=== PATIENT | female | born 1970 | race Caucasian/White ===

== ENCOUNTER 2017-01-10 19:20 | Emergency (ER) | payer SELFPAY ==
[~2017-01-10] VITALS: Ht 149.9 cm; Wt 80.0 kg
[~2017-01-10 19:20] MED LIST: CEPHALEXIN500 MG PO; DUONEB IN; FLEXERIL PO; HYDROCHLOROT12.5 MG PO; IPRATROPIU0.5 MG/3 M IN; LISINOPRIL10 MG PO; MEDDOSEPAK PO; NAPROSYN500 MG PO; QVAR80 MCG IN; ROBITUSSIN AC10 ML PO
[2017-01-10] MEDS ORDERED: AMOXICILLIN500 MG PO (20:24)
[2017-01-10] MEDS ORDERED: PERCOCET 5/325M1 TAB PO (20:24)
[2017-01-10 20:36] VITALS: BP 148/89
== END 2017-01-10 20:36 | disposition home or self-care (01) | DRG 159 ==
LOC: ED 19:20
DX: K02.9 Dental caries, unspecified (principal); I10 Essential (primary) hypertension; J44.9 Chronic obstructive pulmonary disease, unspecified; F17.210 Nicotine dependence, cigarettes, uncomplicated

== ENCOUNTER 2017-10-18 19:44 | Emergency (ER) | payer SELFPAY ==
[~2017-10-18] VITALS: Ht 149.9 cm; Wt 84.6 kg
[~2017-10-18 19:44] MED LIST changes: +AMOXICILLIN500 MG PO; +PERCOCET 5/325M1 TAB PO
[2017-10-18] MEDS ORDERED: ALBUTEROL2 MG/5 ML PO (19:52)
[2017-10-18 21:27] LABS: INFLUENZA A NONE DETECTED (NONE DETECT); INFLUENZA B NONE DETECTED (NONE DETECT)
[2017-10-18 22:00] VITALS: BP 157/95
== END 2017-10-18 22:05 | disposition home or self-care (01) | DRG 203 ==
LOC: ED 19:44
PROVIDERS: Emergency Medicine
DX: J20.9 Acute bronchitis, unspecified (principal); F17.210 Nicotine dependence, cigarettes, uncomplicated; R06.02 Shortness of breath; R05 Cough; R09.89 Other specified symptoms and signs involving the circulatory and respiratory systems

== ENCOUNTER 2018-07-08 17:46 | Emergency (ER) | payer SELFPAY ==
[~2018-07-08] VITALS: Ht 149.9 cm; Wt 85.0 kg
[~2018-07-08 17:46] MED LIST changes: +ALBUTEROL2 MG/5 ML PO
[2018-07-08 18:26] LABS: HEMATOCRIT 43.2 % (37.0-47.0); HEMOGLOBIN 14.3 g/dl (12.0-16.0); IMMATURE GRANULOCYTES 0.2 % (0.0-5.0); MEAN CELL VOLUME 88.5 fL CALC (80.0-100.0); MEAN CORPUSCULAR HGB 29.3 pG CALC (26.0-32.0); MEAN CORPUSCULAR HGB CONC 33.1 g/L CALC (32.0-36.0); NEUT# 4.57 thou/uL (2.00-7.15); RED BLOOD COUNT 4.88 mill/uL (4.20-5.60); RED CELL DISTRI WIDTH 13.8 % (11.5-15.5)
[2018-07-08 18:36] LABS: ALBUMIN 4.2 g/dL (3.2-5.0); ALKALINE PHOSPHATASE 129 u/l (38-126); ANION GAP 14 (6-22 (CALC)); BILIRUBIN, TOTAL 0.3 mg/dL (0.0-1.4); BUN 20 mg/dL (7-17); BUN/CREATININE RATIO 23 (12-20 (CALC)); CARBON DIOXIDE 26 mmol/l (22-30); CHLORIDE 108 mmol/l (95-108); CREATININE 0.9 mg/dL (0.5-1.0); GFR > 60 ML/MIN (>=60 (CALC)); GFR FOR AFR.AMER. > 60 ML/MIN (>=60 (CALC)); POTASSIUM 4.1 mmol/l (3.5-5.1); SGOT/AST 25 u/l (14-36); SGPT/ALT 39 u/l (9-52); SODIUM 143 mmol/l (137-146); TOTAL PROTEIN 7.8 g/dL (6.3-8.2)
[2018-07-08 18:37] LABS: ACT PARTIAL THROMBO TIME 27.7 SECONDS (20.0-32.5); D-DIMER 0.71 mg/L (0.19-0.60); INTERNATIONAL NORMALIZED RATIO 0.9 RATIO (0.7-1.3); PROTHROMBIN TIME 10.5 SECONDS (9.0-12.5)
[2018-07-08 19:29] VITALS: BP 139/70
== END 2018-07-08 19:29 | disposition left against medical advice (07) | DRG 204 ==
LOC: ED 17:46
PROVIDERS: Emergency Medicine
DX: R04.2 Hemoptysis (principal); J44.9 Chronic obstructive pulmonary disease, unspecified; F17.210 Nicotine dependence, cigarettes, uncomplicated; Z91.19 Patient's noncompliance with other medical treatment and regimen

== ENCOUNTER 2019-12-30 | Emergency (ER) | payer SELFPAY ==
[2019-12-30 13:06] LABS: HEMOGLOBIN 14.8 g/dl (12.0-16.0); IMMATURE GRANULOCYTES 0.4 % (0.0-5.0); MEAN CELL VOLUME 88.8 fL CALC (80.0-100.0); MEAN CORPUSCULAR HGB CONC 31.5 g/L CALC (32.0-36.0); NEUT# 6.9 thou/uL (2.00-7.15); RED BLOOD COUNT 5.29 mill/uL (4.20-5.60); RED CELL DISTRI WIDTH 14.4 % (11.5-15.5)
[2019-12-30 13:25] LABS: ALBUMIN 3.9 g/dL (3.2-5.0); ALKALINE PHOSPHATASE 118 u/l (38-126); ANION GAP 12 (6-22 (CALC)); BUN 19 mg/dL (7-17); BUN/CREATININE RATIO 25 (12-20 (CALC)); CARBON DIOXIDE 27 mmol/l (22-30); CHLORIDE 104 mmol/l (95-108); CREATININE 0.8 mg/dL (0.5-1.0); GFR > 60 ML/MIN (>=60 (CALC)); GFR FOR AFR.AMER. > 60 ML/MIN (>=60 (CALC)); LIPASE 56 u/l (23-300); POTASSIUM 4.9 mmol/l (3.5-5.1); SGOT/AST 25 u/l (14-36); SODIUM 138 mmol/l (137-146); TOTAL PROTEIN 7.1 g/dL (6.3-8.2)
[2019-12-30 13:26] LABS: BILIRUBIN, TOTAL 0.5 mg/dL (0.0-1.4)
[2019-12-30 14:34] LABS: URINE BILIRUBIN - DIPSTICK NEGATIVE (NEGATIVE); URINE BLOOD DIPSTICK NEGATIVE (NEGATIVE); URINE COLOR YELLOW; URINE GLUCOSE - DIPSTICK NEGATIVE (NEGATIVE); URINE KETONE NEGATIVE (NEGATIVE); URINE LEUK ESTERASE NEGATIVE (NEGATIVE); URINE NITRITE - DIPSTICK NEGATIVE (Negative); URINE PROTEIN - DIPSTICK NEGATIVE (NEG-TRACE); URINE SPECIFIC GRAVITY >=1.030; URINE UROBILINOGEN - DIPSTICK 0.2 E.U./dL (0.2)
== END 2019-12-30 15:35 | disposition home or self-care (01) | DRG 392 ==
PROVIDERS: Family Medicine
DX: R10.9 Unspecified abdominal pain (principal); J44.9 Chronic obstructive pulmonary disease, unspecified; F17.200 Nicotine dependence, unspecified, uncomplicated

== ENCOUNTER 2020-11-29 21:47 | Inpatient (IN) | payer MEDICARE, MEDICAID ==
[~2020-11-29] VITALS: Ht 149.9 cm; Wt 99.5 kg
--- NOTE | 2020-11-29 21:55 | NUR ---
PATIENT TO ROOM 10 VIA WHEELCHAIR. TRIAGE COMPLETED AT BEDSIDE. PATIENT PLACED ON O2. MD AT BEDSIDE FOR EVAL.
[2020-11-29 22:16] LABS: HEMATOCRIT 52.6 % (37.0-47.0); HEMOGLOBIN 16.2 g/dl (12.0-16.0); IMMATURE GRANULOCYTES 0.3 % (0.0-5.0); MEAN CELL VOLUME 92.1 fL CALC (80.0-100.0); MEAN CORPUSCULAR HGB 28.4 pG CALC (26.0-32.0); MEAN CORPUSCULAR HGB CONC 30.8 g/dL CAL (32.0-36.0); NEUT# 8.16 thou/uL (2.00-7.15); RED BLOOD COUNT 5.71 mill/uL (4.20-5.60); RED CELL DISTRI WIDTH 14.8 % (11.5-15.5)
--- NOTE | 2020-11-29 22:18 | NUR ---
PT WAS PLACED ON NRB AT 15 LPM NC. ABG DONE ON NRB. IV STARTED, LABS, CULTURES OBTAINED. COVID SWAB OBTAINED AND SENT TO LAB. EKG DONE. XRAY IN PROGRESS NOW. BREATHING EASIER. SATS UP TO 94 ON NRB. S.O. AT BEDSIDE.
[2020-11-29 22:36] LABS: ALBUMIN 4.3 g/dL (3.2-5.0); ALKALINE PHOSPHATASE 148 u/l (38-126); ANION GAP 10 (6-22 (CALC)); BILIRUBIN, TOTAL 0.4 mg/dL (0.0-1.4); BUN 15 mg/dL (7-17); BUN/CREATININE RATIO 18 (12-20 (CALC)); CARBON DIOXIDE 30 mmol/l (22-30); CHLORIDE 104 mmol/l (95-108); CREATININE 0.9 mg/dL (0.5-1.0); GFR > 60 ML/MIN (>=60 (CALC)); GFR FOR AFR.AMER. > 60 ML/MIN (>=60 (CALC)); LIPASE 58 u/l (23-300); POTASSIUM 4.2 mmol/l (3.5-5.1); SGOT/AST 30 u/l (14-36); SODIUM 140 mmol/l (137-146); TOTAL PROTEIN 7.7 g/dL (6.3-8.2)
[2020-11-29 22:38] LABS: PROTHROMBIN TIME 10.4 SECONDS (9.0-12.5)
--- NOTE | 2020-11-29 22:59 | NUR ---
BREATHING TREATMENT IN PROGRESS...SECOND TREATMENT STARTED.
--- NOTE | 2020-11-29 23:35 | NUR ---
BREATHING EASIER. VSS. FEELS MUCH BETTER.
--- NOTE | 2020-11-29 23:42 | NUR ---
REPORT TO MARI/RN/ICU
[2020-11-30] VITALS (19 sets, daily range): BP systolic 114–155; BP diastolic 58–79
--- NOTE | 2020-11-30 00:09 | NUR ---
TO ICU VIA STRETCHER WITH O2 @ 6 LPM HIGH FLOW. PORTABLE MONITOR. PT BELONGINGS IN BAG. PT FEELS MUCH BETTER AND LESS WINDED. UPON ARRIVAL TO UNIT, PT AMBULATORY FROM STRETCHER TO BED. TOLERATED WELL.
--- NOTE | 2020-11-30 00:15 | NUR ---
RECEIVED FROM ER VIA STRETCHER INTO ICU 2. PATIENT AMBULATED WITH STABLE STANCE AND STEADY GAIT TO BED. PLACED ON HEEL COVERER SHOWING SR. RESP DYSPNEIC WITH EXERTION. O2 ON AT 6 L HFNC. BREATH SOUNDS DIMINISHED WITH FAINT WHEEZES THROUGHOUT LUNG HELLER. TRACE EDEMA OF BLE. BLE FAMILIA IN COLOR WITH FAINT MOTTLING. PATIENT STATES HER LEGS HAVE HAD THESE DISCOLORATIONS FOR PAST YEAR. PERIPHERAL PULSES WEAKLY PALPABLE. SALINE LOCK IN LAC, SITE BENIGN. DISCUSSED PLAN OF CARE. DENIES NEEDS AT THIS TIME. CALL MORAN IN REACH.
--- NOTE | 2020-11-30 02:00 | NUR ---
SLEEPING SOUNDLY. RESP NON-LABORED AT REST.
[2020-11-30 03:27] LABS: HEMATOCRIT 50.2 % (37.0-47.0); HEMOGLOBIN 15.5 g/dl (12.0-16.0); IMMATURE GRANULOCYTES 0.5 % (0.0-5.0); MEAN CELL VOLUME 92.6 fL CALC (80.0-100.0); MEAN CORPUSCULAR HGB 28.6 pG CALC (26.0-32.0); MEAN CORPUSCULAR HGB CONC 30.9 g/dL CAL (32.0-36.0); NEUT# 10.85 thou/uL (2.00-7.15); RED BLOOD COUNT 5.42 mill/uL (4.20-5.60); RED CELL DISTRI WIDTH 14.7 % (11.5-15.5)
[2020-11-30 03:42] LABS: ALKALINE PHOSPHATASE 124 u/l (38-126); ANION GAP 8 (6-22 (CALC)); BILIRUBIN, TOTAL 0.4 mg/dL (0.0-1.4); BUN 15 mg/dL (7-17); BUN/CREATININE RATIO 21 (12-20 (CALC)); CARBON DIOXIDE 31 mmol/l (22-30); CHLORIDE 104 mmol/l (95-108); CREATININE 0.7 mg/dL (0.5-1.0); GFR > 60 ML/MIN (>=60 (CALC)); GFR FOR AFR.AMER. > 60 ML/MIN (>=60 (CALC)); POTASSIUM 4.8 mmol/l (3.5-5.1); SGOT/AST 23 u/l (14-36); SODIUM 138 mmol/l (137-146); TOTAL PROTEIN 6.9 g/dL (6.3-8.2)
--- NOTE | 2020-11-30 04:00 | NUR ---
VSS. RESP NON-LABORED AT REST. SR ON MONITOR.
--- NOTE | 2020-11-30 05:40 | NUR ---
PATIENT SPOUSE CALLED FOR CONDITION UPDATE.
--- NOTE | 2020-11-30 06:05 | NUR ---
PATIENT HAS SLEPT SOUDNLY, AWAKENS TO NAME. VSS. SR ON MONITOR.
--- NOTE | 2020-11-30 09:00 | NUR ---
PT SEEN RESTING IN BED WITH EYES CLOSED. SHE DOES HAVE SLIGHT WHEEZING HEARD, NO SHORTNESS OF BREATH HEARD.
--- NOTE | 2020-11-30 13:00 | NUR ---
PT WITH NEW IV SITE PER BURNING FROM PREVIOUS SITE. PT CONTINUES AT REST IN THE BED, NO DISTRESS, NO COMPLAINTS.
--- NOTE | 2020-11-30 17:08 | NUR ---
PT REMAINS AT REST IN THE BED WITHOUT COMPLAINT OR EVIDENCE OF DISTRESS. FAMILY UPDATED THEY CALL. RESP TX GIVEN ORDERED.
--- NOTE | 2020-11-30 20:43 | NUR ---
PT SITTING UP IN BED, CALL LIGHT WITHIN REACH. BED IN LOWEST POSITION. NO COMPLAINTS VOICED. ASSESSED BREATHING AND NOTED THAT BREATHING IS EVEN AND UNLABORED. LUNGS HAVE EXPITORY WHEEZES IN ALL LUNG HELLER. bs ACTIVE X 4 QUADS. PEDAL PULSES STRON BILATERALY. WILL CONTINUE TO MONITOR.
--- NOTE | 2020-11-30 21:15 | NUR ---
PT UP IN BED, SOLUMEDROL ADMINISTERED PER ORDER. DENIES PAIN AND SOB AT THISW TIME. PT INDICATED SHE DID NOT NEED ANYTHING AND THAT SHE WAS GOING TO SLEEP FOR THE NIGHT. WILL MONITOR.
[2020-12-01] VITALS (20 sets, daily range): BP systolic 109–168; BP diastolic 54–85
--- NOTE | 2020-12-01 00:02 | NUR ---
PT RESTING COMFORTABLY IN BED, NO CONCERNS AT THIS TIME. BREATHING TREATMENT GIVEN BY RESPIRATORY THERAPIST, WITH SOME EFFECT REPORTED. PT STILL HAS WHEEZING THROUGHOUT. O2 SATURATION REMAINS WNL, DENIES PAIN. WILL MONITOR.
--- NOTE | 2020-12-01 02:13 | NUR ---
NOTED THAT PT HR WAS BRADYING DOWN TO THE HIGH 40'S. THIS NURSE WOKE PT UP AND HR INCREASED TO THE 80'S. WILL MONITOR.
--- NOTE | 2020-12-01 07:18 | NUR ---
REPORT RECEIVED FROM GERRY ALLEN. PT SITTING UP IN BED; ALERT AND OREINTED X [address]. PT DENIES PAIN CURRENTLY. RESPIRATIONS EVEN AND SHALLOW ON HUMIDIFIED OXYGEN 5L VIA HIGH FLOW NC; SPO2 87-90%; TITRATED UP TO 6L AND SPO2 INCREASED TO 92%; EXPIRATORY WHEEZING THROUGHOUT; DRY COUGH NOTED OCCASIONALLY. ABDOMEN DISTENDED AND SOFT WTIH HYPOACTIVE BS; PT REPORTS THAT HER NORMAL BOWEL PATTERN IS APPROXIMATELY 2 TIMES PER WEEK AND SHE GENERALLY HAS A POOR APETITE. BLE HAVE MILD DISCOLORATION WITH WEAK PEDAL PULSES. POC REVIEWED; PT ENCOURAGED TO VERBALIZE CONCERNS; APPEARS SLIGHTLY ANXIOUS. SAFETY MEASURES IN PLACE. CALL LIGHT WITHIN REACH.
--- NOTE | 2020-12-01 08:05 | NUR ---
DR. SILVA AT BEDSIDE FOR EVAL. PT REPORTS THAT HER NORMAL SPO2 AT HOME ON ROOM AIR IS BETWEEN 80-82%; SHE DOES NOT USE OXYGEN AT HOME. REVIEWED NORMAL SPO2 RANGES AND HER CURRENT OXYGEN DEMAND. PT ANXIOUS AND WANTS TO GO HOME, BUT AGREES TO STAY ANOTHER NIGHT ON OXYGEN. NEW ORDERS RECEIVED.
[2020-12-01 08:11] LABS: HEMATOCRIT 52.7 % (37.0-47.0); MEAN CELL VOLUME 93.9 fL CALC (80.0-100.0); MEAN CORPUSCULAR HGB 28.5 pG CALC (26.0-32.0); MEAN CORPUSCULAR HGB CONC 30.4 g/dL CAL (32.0-36.0); NEUT# 14.54 thou/uL (2.00-7.15); RED BLOOD COUNT 5.61 mill/uL (4.20-5.60); RED CELL DISTRI WIDTH 14.4 % (11.5-15.5)
--- NOTE | 2020-12-01 08:15 | NUR ---
LAB AT BEDSIDE FOR BLOOD DRAW. PT ASSISTED INTO BEDSIDE CHAIR AND EDUCATED ON INCENTIVE SPIROMETER.
--- NOTE | 2020-12-01 09:51 | NUR ---
TYLENOL GIVEN FOR 710 HEADACHE.
[2020-12-01 10:07] LABS: ANION GAP 13 (6-22 (CALC)); BUN 21 mg/dL (7-17); BUN/CREATININE RATIO 31 (12-20 (CALC)); CARBON DIOXIDE 25 mmol/l (22-30); CHLORIDE 102 mmol/l (95-108); CREATININE 0.7 mg/dL (0.5-1.0); GFR > 60 ML/MIN (>=60 (CALC)); GFR FOR AFR.AMER. > 60 ML/MIN (>=60 (CALC)); SODIUM 136 mmol/l (137-146)
--- NOTE | 2020-12-01 12:00 | NUR ---
NOW RESTING IN BED ON LEFT SIDE WITH EYES CLOSED AND NO SIGNS OF DISTRESS; OXYGEN IN PLACE AT 6L PER NC; SPO2 90%. CALL LIGHT WITHIN REACH.
--- NOTE | 2020-12-01 13:23 | NUR ---
RT AT BEDSIDE FOR BREATHING TREATMENT.
--- NOTE | 2020-12-01 13:30 | NUR ---
DECLINED BREATHING TREATMENT; SPO2 DECREASED TO 82-84% AND PT FOUND WITH OXYGEN REMOVED; STATES THAT IT MUST HAVE FALLEN OFF; REPLACED AND SPO2 RETURNED TO 92%; OXYGEN CONINUES AT 6L VIA HF NC. WILL CONTINUE TO MONITOR.
--- NOTE | 2020-12-01 15:30 | NUR ---
CALLED FOR UPDATE; QUESTIONS ANSWERED TO SATISFACTION. REPORTS THAT PT DOES HAVE OXYGEN AT HOME THAT THEY OBTAINED FROM FRIENDS, BUT PT DOES NOT WEAR IT UNLESS SHE IS HAVING SEVERE SOB; HE ALSO REPORTS THAT SHE DOES FREQUENT INCOMPLETE BREATHING TREATMENTS, APPROXIMATELY 15 TIMES PER DAY. HE STATES THAT HER MOTHER WAS ON OXYGEN AT END OF LIFE AND PT HAS ANXIETY ABOUT WEARING O2.
--- NOTE | 2020-12-01 17:58 | NUR ---
PT CONTINUES RESTING ON LEFT SIDE IN BED ASLEEP; NAPPED FOR MOST OF THE SHIFT. AWAKENS TO VERBAL STIMULI. VSS; BLOOD PRESSURE ELEVATED WITH SBP IN THE 150S; SPO2 91% ON 6L O2 HIGH FLOW NC. SINUS RHYTHM WITH OCCASTIONAL PAC'S ON STEERER HEART RATE 80-90S. IV SITE APPEARS HEALTHY AND FLUSHES. SAFETY MEASURES IN PLACE. CALL LIGHT WITHIN REACH.
--- NOTE | 2020-12-01 19:29 | NUR ---
RECEIVED REPORT FOR THIS PT AND IN BED WITH EYES OPEN AND ABLE TO MAKE NEEDS KNOWN. NO RESPIRATORY DISTRESS NOTED. CONTINENT OF B/B AND ABLE TO TRANSFER SELF TO COMMODE. CALL LIGHT IS WITHIN REACH AND BED IN LOW POSITION. WILL CONTINUE TO OBSERVE
--- NOTE | 2020-12-01 22:37 | NUR ---
pt in bed with eyes closed. no s/s of distress noted. respirations even and non labored. denies pain or discomfort. up to bsc with standby assist x 1. continent of b/b.calm anc cooperative. iv site intact with no complications noted. call light within reach. will continue to observe
[2020-12-02] VITALS (7 sets, daily range): BP systolic 134–174; BP diastolic 65–97
--- NOTE | 2020-12-02 04:03 | NUR ---
pt in bed with eyes closed. able to verbalize needs. non productive cough noted
[2020-12-02 05:25] LABS: HEMATOCRIT 51.9 % (37.0-47.0); HEMOGLOBIN 15.6 g/dl (12.0-16.0); IMMATURE GRANULOCYTES 0.8 % (0.0-5.0); MEAN CELL VOLUME 93.2 fL CALC (80.0-100.0); MEAN CORPUSCULAR HGB CONC 30.1 g/dL CAL (32.0-36.0); NEUT# 9.26 thou/uL (2.00-7.15); RED BLOOD COUNT 5.57 mill/uL (4.20-5.60); RED CELL DISTRI WIDTH 14.5 % (11.5-15.5)
[2020-12-02 05:47] LABS: BUN 22 mg/dL (7-17); BUN/CREATININE RATIO 28 (12-20 (CALC)); CHLORIDE 101 mmol/l (95-108); CREATININE 0.8 mg/dL (0.5-1.0); GFR > 60 ML/MIN (>=60 (CALC)); GFR FOR AFR.AMER. > 60 ML/MIN (>=60 (CALC)); POTASSIUM 4.4 mmol/l (3.5-5.1); SODIUM 138 mmol/l (137-146)
[2020-12-02 05:52] LABS: ANION GAP 6 (6-22 (CALC)); CARBON DIOXIDE 35 mmol/l (22-30)
--- NOTE | 2020-12-02 06:17 | NUR ---
PT IN BED WITH EYES CLOSED. NO S/S OF DISTRESS NOTED. EASILY AROUSED.ON 6LNC HIGH FLOW WITH O2 SAY 94%. PT HAS SON NOTED ON EXERTION AND HAS A NON PRODUCTIVE COUGH. CONTINENT OF B/B AND SBLE TO TRANSFER TO BSC WITH STANDBY ASSIST. RECEIVING NEB TREATMENTS AND TOLERATING WELL. WILL CONTINUE TO OBSERVEBED IN LOW POSITION AND CALL LIGHT IS WITHIN REACH.
--- NOTE | 2020-12-02 07:07 | NUR ---
REPORT RECEIVED FROM JERMAIN GONZALEZ. RT AT BEDSIDE FOR BREATHING TREATMENT. PT COOPERATIVE AND REQUESTED TREATMENT.
--- NOTE | 2020-12-02 07:08 | NUR ---
PT NONCOMPLIAN WITH WEARNING O2 OR SITTING UP IN BED FOR APPROPRIATE NEBULIZATION OF AEROSOLIZED BRONCHODILATOR THERAPY. SPORTS TEAM MARKETING INTERN INFORMED PT OF PROPER POSITIONING AND IMPORTANCE OF 02. PT VERBALIZED UNDERSTANDING.
--- NOTE | 2020-12-02 07:15 | NUR ---
ASSISTED UP INTO CHAIR. PT IS ALERT AND ORIENTED. DENIES PAIN CURRENTLY. RESPIRATIONS EVEN; EXERTIONAL SOB GETTING UP INTO CHAIR; 90% SPO2 ON 6L OF HUMIDIFIED OXYGEN VIA HIGH FLOW NC. ASSISTED INTO BEDSIDE CHAIR WITH ENCOURAGEMENT; ENCOURAGED USE OF INCENTIVE SPIROMETER. PT INSTUCTED TO STAY UP IN CHAIR AND PRACTICE GOOD BREATHING TECHNIQUES. LUNGS ARE DIMINISHED; TRACE ANKLE EDEMA. IV SITE APPEARS HEALTHY AND FLUSHES. POC REVIEWED. PT ENCOURAGED TO VERBALIZE CONCERNS. STATES UNDERSTANDING. SAFETY MEAURES IN PLACE; CALL LIGHT WITHIN REACH.
--- NOTE | 2020-12-02 07:45 | NUR ---
PT FOUND WITH OXYGEN REMOVED AND WRAPPED AROUND IV POLE; SPO2 80%. PT STATES, "I DON'T NEED THE OXYGEN ALL OF THE TIME." PT NOTIFIED OF CURRENT OXYGEN SATURATION LEVEL AND THAT SHE DOES NEED TO WEAR THE OXYGEN AT ALL TIMES. REMINDED THAT SHE IS REQUIRING 6L OF O2 TO MAINTAIN AN APROPRIATE OXYGEN SATURATION LEVEL. PT AGREES TO REAPPLY O2 AND SPO2 INCREASES TO 88% WHILE EATING BREAKFAST.
--- NOTE | 2020-12-02 08:00 | NUR ---
PT OBSERVED TRANSFERRING SELF BACK INTO BED INDEPENDENTLY AND NOW RESTING ON RIGHT SIDE. PT AGAIN ENCOURAGED TO BE OUT OF BED MUCH SHE CAN; PT STATES THAT SHE DOESN'T FEEL WELL AND DIDN'T SLEEP WELL LAST NIGHT AND WANTS TO STAY IN BED. SPO2 CURRENTLY 90%.
--- NOTE | 2020-12-02 08:26 | NUR ---
DR. SILVA AT BEDSIDE.
[2020-12-02] MEDS ORDERED: PREDNISONE10 MG PO (08:59)
[2020-12-02] MEDS ORDERED: AMOX/K CLAV875 M1 PO (09:00)
[2020-12-02] MEDS ORDERED: ANORO ELLIPTA 61 AER IN (09:02)
[2020-12-02] MEDS ORDERED: ALBUTEROL108 MCG/AC IN (09:02)
--- NOTE | 2020-12-02 09:39 | NUR ---
ROCEPHIN AND ZITHROMAX INFUSING.
--- NOTE | 2020-12-02 10:20 | NUR ---
D/C INSTRUCTIONS GIVEN TO PT, PT VERBALIZED UNDERSTANDING. EXPLAINED TO PT THAT O2 WAS TO BE DELIVERED HERE PRIOR TO D/C.
--- NOTE | 2020-12-02 10:35 | NUR ---
SPO2 DECREASED TO 78%; PT FOUND WITH OXYGEN AGAIN REMOVED. ASKED HOW OXYGEN WAS REMOVED AND PT STATES, "I JUST TOOK IT OFF, I DON'T KNOW WHY." OXYGEN REPLACED AND PT INSTRUCTED TO KEEP OXYGEN ON AT ALL TIMES. SPO2 NOW 91% ON 6L.
--- NOTE | 2020-12-02 10:50 | NUR ---
ZITHROMAX COMPLETED. IV site discontinued, cath intact. No edema , no redness, voices no discomfort.
--- NOTE | 2020-12-02 12:30 | NUR ---
UP TO BSC FOR BOWEL MOVEMENT. ANXIOUS AND WANTING TO LEAVE STATING THAT HER IS ON HIS WAY TO GET HER. PT REMINDED THAT SHE SHOULD WAIT FOR OXYGEN TO BE DELIVERED. REMOVED OXYGEN TO USE BATHROOM; REMINDED TO STOP REMOVING HER OXYGEN AND PT REAPPLIES IT HERSELF.
--- NOTE | 2020-12-02 13:03 | NUR ---
[employer] AT BEDSIDE PROVIDING EDUCATION.
--- NOTE | 2020-12-02 13:21 | NUR ---
Discharge instructions given. Patient verbalizes understanding of same. Discharged in stable condition via Wheelchair to Home with spouse. All belongings sent with pt including oxygen tank. Assisted into personal vehicle and oxygen tubing connected to home tank at 6L via nc.
== END 2020-12-02 13:10 | disposition home or self-care (01) | DRG 189 ==
LOC: ED 21:47 → ED-I 22:34 → ED 23:29 → ICU 23:30
PROVIDERS: ADMIT Internal Medicine; ATTEND Internal Medicine
DX: J96.21 Acute and chronic respiratory failure with hypoxia (principal); J18.9 Pneumonia, unspecified organism; J44.1 Chronic obstructive pulmonary disease with (acute) exacerbation; J44.0 Chronic obstructive pulmonary disease with (acute) lower respiratory infection; I10 Essential (primary) hypertension; Z99.81 Dependence on supplemental oxygen; Z20.822 Contact with and (suspected) exposure to COVID-19

== ENCOUNTER 2021-06-29 11:16 | Emergency (ER) | payer MEDICARE, MEDICAID ==
[~2021-06-29] VITALS: Ht 149.9 cm; Wt 118.0 kg
[~2021-06-29 11:16] MED LIST changes: +ALBUTEROL108 MCG/AC IN; +AMOX/K CLAV875 M1 PO; +ANORO ELLIPTA 61 AER IN; +PREDNISONE10 MG PO
[2021-06-29 12:03] LABS: IMMATURE GRANULOCYTES 0.3 % (0.0-5.0); MEAN CELL VOLUME 90.6 fL CALC (80.0-100.0); MEAN CORPUSCULAR HGB 29.1 pG CALC (26.0-32.0); MEAN CORPUSCULAR HGB CONC 32.1 g/dL CAL (32.0-36.0); NEUT# 3.3 thou/uL (2.00-7.15); RED BLOOD COUNT 6.18 mill/uL (4.20-5.60); RED CELL DISTRI WIDTH 14.1 % (11.5-15.5)
[2021-06-29 12:21] LABS: ALBUMIN 3.9 g/dL (3.2-5.0); ALKALINE PHOSPHATASE 89 u/l (38-126); ANION GAP 11 (6-22 (CALC)); BUN 18 mg/dL (7-17); BUN/CREATININE RATIO 28 (12-20 (CALC)); C-REACTIVE PROTEIN 1.1 mg/dL (0-0.9); CARBON DIOXIDE 32 mmol/l (22-30); CHLORIDE 100 mmol/l (95-108); CREATININE 0.6 mg/dL (0.5-1.0); GFR > 60 ML/MIN (>=60 (CALC)); GFR FOR AFR.AMER. > 60 ML/MIN (>=60 (CALC)); POTASSIUM 3.9 mmol/l (3.5-5.1); SGOT/AST 36 u/l (14-36); SODIUM 139 mmol/l (137-146); TOTAL PROTEIN 7.3 g/dL (6.3-8.2)
[2021-06-29 12:29] LABS: BILIRUBIN, TOTAL 0.8 mg/dL (0.0-1.4)
[2021-06-29 18:00] VITALS: BP 116/68
--- NOTE | 2021-07-01 08:28 | NUR ---
PRELIM BLOOD CX SHOWS GRAM POSITIVE COCCI IN 2/4 VIALS, SAME SET. REPORTED TO JOHNIE AT [facility] [address] AND FAXED TO [phone]. WILL F/U WITH FINAL
--- NOTE | 2021-07-02 11:41 | NUR ---
Final blood cultures show Staphylococcus hominis in 2/4 vials, same set. These results were reported to Betzy at [facility], ICU nursing station, and faxed to [phone].
--- NOTE | 2021-07-04 16:14 | NUR ---
Final blood cultures show Bacillus species in 1 of 4 vials, 1 of 2 sets. Results were reported to Nicci at [facility], ICU nursing station, and faxed to [phone].
== END 2021-06-29 18:40 | disposition short-term general hospital (02) ==
LOC: ED 11:16
PROVIDERS: Family Medicine
DX: I62.9 Nontraumatic intracranial hemorrhage, unspecified (principal); U07.1 COVID-19; J12.82 Pneumonia due to coronavirus disease 2019; J44.0 Chronic obstructive pulmonary disease with (acute) lower respiratory infection; I10 Essential (primary) hypertension
CPT/HCPCS: J1953; J2060; Q9967

== ENCOUNTER 2021-11-15 16:40 | Emergency (ER) | payer MEDICARE, MEDICAID ==
[~2021-11-15] VITALS: Ht 121.9 cm; Wt 90.0 kg
[2021-11-15 17:47] LABS: IMMATURE GRANULOCYTES 0.1 % (0.0-5.0); MEAN CELL VOLUME 94.3 fL CALC (80.0-100.0); MEAN CORPUSCULAR HGB 29.7 pG CALC (26.0-32.0); MEAN CORPUSCULAR HGB CONC 31.5 g/dL CAL (32.0-36.0); NEUT# 5.06 thou/uL (2.00-7.15); RED BLOOD COUNT 5.25 mill/uL (4.20-5.60); RED CELL DISTRI WIDTH 14.4 % (11.5-15.5)
[2021-11-15 17:50] LABS: HEMATOCRIT 49.5 % (37.0-47.0); HEMOGLOBIN 15.6 g/dl (12.0-16.0)
[2021-11-15 17:54] LABS: ALBUMIN 3.5 g/dL (3.2-5.0); ALKALINE PHOSPHATASE 96 u/l (38-126); ANION GAP 7 (6-22 (CALC)); BILIRUBIN, TOTAL 0.6 mg/dL (0.0-1.4); BUN 15 mg/dL (7-17); BUN/CREATININE RATIO 23 (12-20 (CALC)); CARBON DIOXIDE 34 mmol/l (22-30); CHLORIDE 102 mmol/l (95-108); CREATININE 0.6 mg/dL (0.5-1.0); GFR > 60 ML/MIN (>=60 (CALC)); GFR FOR AFR.AMER. > 60 ML/MIN (>=60 (CALC)); POTASSIUM 4.4 mmol/l (3.5-5.1); SGOT/AST 26 u/l (14-36); SODIUM 138 mmol/l (137-146); TOTAL PROTEIN 6.8 g/dL (6.3-8.2)
[2021-11-15 18:06] LABS: MYOGLOBIN 47 ng/mL (0 - 62)
[2021-11-15] MEDS ORDERED: SYMBICORT1 AE1 IN (21:12)
[2021-11-15 22:09] VITALS: BP 147/65
== END 2021-11-15 22:09 | disposition left against medical advice (07) ==
LOC: ED 16:40
PROVIDERS: Emergency Medicine
DX: U07.1 COVID-19 (principal); J12.82 Pneumonia due to coronavirus disease 2019; J44.1 Chronic obstructive pulmonary disease with (acute) exacerbation; J44.0 Chronic obstructive pulmonary disease with (acute) lower respiratory infection; R79.89 Other specified abnormal findings of blood chemistry; I10 Essential (primary) hypertension; Z91.19 Patient's noncompliance with other medical treatment and regimen

== ENCOUNTER 2021-12-14 10:24 | Emergency (ER) | payer MEDICARE, MEDICAID ==
[~2021-12-14 10:24] MED LIST changes: +SYMBICORT1 AE1 IN
== END 2021-12-14 10:53 | disposition left against medical advice (07) ==
LOC: ED 10:24
DX: J44.9 Chronic obstructive pulmonary disease, unspecified (principal); R09.02 Hypoxemia; I10 Essential (primary) hypertension; Z99.81 Dependence on supplemental oxygen; Z91.19 Patient's noncompliance with other medical treatment and regimen

== ENCOUNTER 2021-12-24 21:30 | Emergency (ER) | payer MEDICARE, MEDICAID ==
[~2021-12-24] VITALS: Ht 149.9 cm; Wt 86.0 kg
[2021-12-24 22:15] LABS: HEMOGLOBIN 17.3 g/dl (12.0-16.0); IMMATURE GRANULOCYTES 0.4 % (0.0-5.0); MEAN CORPUSCULAR HGB 29.4 pG CALC (26.0-32.0); NEUT# 6.85 thou/uL (2.00-7.15); RED BLOOD COUNT 5.89 mill/uL (4.20-5.60); RED CELL DISTRI WIDTH 14.4 % (11.5-15.5)
[2021-12-24 22:18] LABS: HEMATOCRIT 57.7 % (37.0-47.0)
[2021-12-24 22:46] LABS: ALBUMIN 3.8 g/dL (3.2-5.0); ALKALINE PHOSPHATASE 103 u/l (38-126); ANION GAP 9 (6-22 (CALC)); BILIRUBIN, TOTAL 0.6 mg/dL (0.0-1.4); BUN 16 mg/dL (7-17); BUN/CREATININE RATIO 22 (12-20 (CALC)); CARBON DIOXIDE 33 mmol/l (22-30); CHLORIDE 104 mmol/l (95-108); CREATININE 0.7 mg/dL (0.5-1.0); GFR > 60 ML/MIN (>=60 (CALC)); GFR FOR AFR.AMER. > 60 ML/MIN (>=60 (CALC)); POTASSIUM 4.9 mmol/l (3.5-5.1); SGOT/AST 33 u/l (14-36); SODIUM 141 mmol/l (137-146); TOTAL PROTEIN 7.3 g/dL (6.3-8.2)
[2021-12-24 22:58] LABS: MYOGLOBIN 49 ng/mL (0 - 62)
[2021-12-24 23:30] VITALS: BP 159/91
[2021-12-24 23:45] VITALS: BP 152/94
[2021-12-25] VITALS: BP 147/77
[2021-12-25 00:16] VITALS: BP 142/78
[2021-12-25 00:31] VITALS: BP 123/68
== END 2021-12-25 01:00 | disposition short-term general hospital (02) ==
LOC: ED 21:30
PROVIDERS: Family Medicine
DX: J44.1 Chronic obstructive pulmonary disease with (acute) exacerbation (principal); R79.89 Other specified abnormal findings of blood chemistry; I10 Essential (primary) hypertension; Z99.81 Dependence on supplemental oxygen; Z87.891 Personal history of nicotine dependence; Z20.822 Contact with and (suspected) exposure to COVID-19
CPT/HCPCS: J1650

== ENCOUNTER 2022-01-08 08:53 | Emergency (ER) | payer MEDICARE, MEDICAID ==
[~2022-01-08] VITALS: Ht 149.9 cm; Wt 84.7 kg
[2022-01-08 09:50] LABS: HEMATOCRIT 54.5 % (37.0-47.0); HEMOGLOBIN 16.3 g/dl (12.0-16.0); IMMATURE GRANULOCYTES 0.7 % (0.0-5.0); MEAN CELL VOLUME 97.5 fL CALC (80.0-100.0); MEAN CORPUSCULAR HGB 29.2 pG CALC (26.0-32.0); MEAN CORPUSCULAR HGB CONC 29.9 g/dL CAL (32.0-36.0); NEUT# 10.62 thou/uL (2.00-7.15); RED BLOOD COUNT 5.59 mill/uL (4.20-5.60)
[2022-01-08 10:06] LABS: INTERNATIONAL NORMALIZED RATIO 1.1 RATIO (0.7-1.3)
[2022-01-08 10:11] LABS: BILIRUBIN, TOTAL 0.8 mg/dL (0.0-1.4); CREATININE 1.2 mg/dL (0.5-1.0); POTASSIUM 4.8 mmol/l (3.5-5.1); TOTAL PROTEIN 7.5 g/dL (6.3-8.2)
--- NOTE | 2022-01-08 14:59 | NUR ---
FIO2 WEANED BY RT. SATS 98%.
[2022-01-08] MEDS ORDERED: PREDNISONE50 MG PO (17:08)
[2022-01-08] MEDS ORDERED: ZPAK PO (17:08)
[2022-01-08 17:31] VITALS: BP 141/89
== END 2022-01-08 17:32 | disposition left against medical advice (07) ==
LOC: ED 08:53 → ED-I 14:11 → ED 17:32
PROVIDERS: Family Medicine
PROC: 5A09357 Assistance with Respiratory Ventilation, Less than 24 Consecutive Hours, Continuous Positive Airway Pressure (ICD-10-PCS; principal; 2022-01-08)
DX: J44.1 Chronic obstructive pulmonary disease with (acute) exacerbation (principal); R79.89 Other specified abnormal findings of blood chemistry; E66.9 Obesity, unspecified; I10 Essential (primary) hypertension; Z91.19 Patient's noncompliance with other medical treatment and regimen

== ENCOUNTER 2023-03-10 19:14 | Emergency (ER) | payer MEDICARE, MEDICAID ==
[~2023-03-10] VITALS: Ht 149.9 cm; Wt 73.0 kg
[~2023-03-10 19:14] MED LIST changes: +LISINOPRIL2.5 MG PO; +MUPIROCIN2 % EX; +PREDNISONE50 MG PO; +VIBRAMYCIN100 M2 PO; +ZPAK PO
[2023-03-10 19:40] VITALS: BP 168/112
[2023-03-10 19:46] VITALS: BP 168/92
[2023-03-10] MEDS ORDERED: IPRATROPIU0.5 MG/3 M IN (19:59)
[2023-03-10 20:01] VITALS: BP 168/93
[2023-03-10 20:07] VITALS: BP 168/93
== END 2023-03-10 20:36 | disposition home or self-care (01) ==
LOC: ED 19:14
DX: J44.1 Chronic obstructive pulmonary disease with (acute) exacerbation (principal); I10 Essential (primary) hypertension

== ENCOUNTER 2023-06-10 13:52 | Inpatient (IN) | payer MEDICARE, MEDICAID ==
[~2023-06-10] VITALS: Ht 149.9 cm; Wt 58.9 kg
[2023-06-10] VITALS (14 sets, daily range): BP systolic 102–140; BP diastolic 48–121
[2023-06-10 14:29] LABS: BASO% 0.4 % (0-3); EOS% 3.1 % (0-8); HEMATOCRIT 52.4 % (37.0-47.0); HEMOGLOBIN 16.5 g/dl (12.0-16.0); IMMATURE GRANULOCYTES 0.1 % (0.0-5.0); LYMPH% 33.3 % (15-41); MEAN CELL VOLUME 93.4 fL CALC (80.0-100.0); MEAN CORPUSCULAR HGB 29.4 pG CALC (26.0-32.0); MEAN CORPUSCULAR HGB CONC 31.5 g/dL CAL (32.0-36.0); MONO% 8.1 % (2-13); NEUT# 4.47 thou/uL (2.00-7.15); RED BLOOD COUNT 5.61 mill/uL (4.20-5.60); RED CELL DISTRI WIDTH 13.8 % (11.5-15.5)
[2023-06-10 14:45] LABS: ALBUMIN 3.7 g/dL (3.2-5.0); ALKALINE PHOSPHATASE 95 u/l (38-126); ANION GAP 7 (6-22 (CALC)); BILIRUBIN, TOTAL 0.9 mg/dL (0.02-1.3); BUN 20 mg/dL (7-17); BUN/CREATININE RATIO 29 (12-20 (CALC)); CARBON DIOXIDE 35 mmol/l (22-30); CHLORIDE 102 mmol/l (95-108); CREATININE 0.7 mg/dL (0.5-1.0); GFR FOR AFR.AMER. > 60 ML/MIN (>=60 (CALC)); GFR OTHER RACES > 60 ML/MIN (>=60 (CALC)); POTASSIUM 5.1 mmol/l (3.5-5.1); SGOT/AST 45 u/l (14-36); SODIUM 140 mmol/l (137-146); TOTAL PROTEIN 7.5 g/dL (6.3-8.2)
[2023-06-11] VITALS (29 sets, daily range): BP systolic 91–134; BP diastolic 51–84
[2023-06-11 10:07] LABS: URINE BILIRUBIN - DIPSTICK Negative (NEGATIVE); URINE BLOOD DIPSTICK Negative (NEGATIVE); URINE GLUCOSE - DIPSTICK Negative (NEGATIVE); URINE KETONE Trace mg/dL (NEGATIVE); URINE LEUK ESTERASE Negative (NEGATIVE); URINE NITRITE - DIPSTICK Negative (Negative); URINE PH 5.5 (4.5-8.0); URINE PROTEIN - DIPSTICK 30 mg/dL (NEG-TRACE); URINE SPECIFIC GRAVITY >=1.030; URINE UROBILINOGEN - DIPSTICK 0.2 E.U./dL (0.2)
[2023-06-11 10:08] LABS: URINE COLOR Yellow; URINE EPITHELIAL CELLS FEW EPI/hpf (0-FEW); URINE MUCUS MODERATE hpf (NONE-FEW)
== END 2023-06-11 13:05 | disposition left against medical advice (07) | DRG 177 ==
LOC: ED 13:52 → ED-I 22:55 → ICU 23:45 → ED 23:45 → ICU 06-11 08:28
PROVIDERS: Emergency Medicine; Family Medicine; ADMIT Student in an Organized Health Care Education/Training Program; ATTEND Student in an Organized Health Care Education/Training Program
DX: U07.1 COVID-19 (principal); J12.82 Pneumonia due to coronavirus disease 2019; J44.1 Chronic obstructive pulmonary disease with (acute) exacerbation; E87.29 Other acidosis; J44.0 Chronic obstructive pulmonary disease with (acute) lower respiratory infection; F15.10 Other stimulant abuse, uncomplicated; I10 Essential (primary) hypertension; R79.89 Other specified abnormal findings of blood chemistry
CPT/HCPCS: J1650

== ENCOUNTER 2023-11-02 06:28 | Emergency (ER) | payer MEDICARE, MEDICAID ==
[2023-11-02] VITALS (18 sets, daily range): BP systolic 120–168; BP diastolic 60–83
[~2023-11-02] VITALS: Ht 149.9 cm; Wt 90.0 kg
[2023-11-02 06:55] LABS: BASO% 0.6 % (0-3); EOS% 4.6 % (0-8); HEMATOCRIT 50.7 % (37.0-47.0); HEMOGLOBIN 15.6 g/dl (12.0-16.0); IMMATURE GRANULOCYTES 0.1 % (0.0-5.0); LYMPH% 37.6 % (15-41); MEAN CELL VOLUME 96.8 fL CALC (80.0-100.0); MEAN CORPUSCULAR HGB 29.8 pG CALC (26.0-32.0); MEAN CORPUSCULAR HGB CONC 30.8 g/dL CAL (32.0-36.0); MONO% 9.7 % (2-13); NEUT# 3.29 thou/uL (2.00-7.15); NEUT% 47.4 % (42-76); RED BLOOD COUNT 5.24 mill/uL (4.20-5.60); RED CELL DISTRI WIDTH 14.2 % (11.5-15.5)
[2023-11-02 07:04] LABS: ALBUMIN 3.7 g/dL (3.2-5.0); ALKALINE PHOSPHATASE 109 u/l (38-126); ANION GAP 6 (6-22 (CALC)); BUN 18 mg/dL (7-17); BUN/CREATININE RATIO 27 (12-20 (CALC)); CARBON DIOXIDE 35 mmol/l (22-30); CHLORIDE 104 mmol/l (95-108); CREATININE 0.6 mg/dL (0.5-1.0); GFR FOR AFR.AMER. > 60 ML/MIN (>=60 (CALC)); GFR OTHER RACES > 60 ML/MIN (>=60 (CALC)); POTASSIUM 4.3 mmol/l (3.5-5.1); SGOT/AST 30 u/l (14-36); SODIUM 141 mmol/l (137-146); TOTAL PROTEIN 6.8 g/dL (6.3-8.2)
[2023-11-02 07:11] LABS: BILIRUBIN, TOTAL 0.4 mg/dL (0.02-1.3)
[2023-11-02] MEDS ORDERED: IPRATROPIU0.5 MG/3 M IN (08:24)
[2023-11-02] MEDS ORDERED: PREDNISONE50 MG PO (08:24)
== END 2023-11-02 10:38 | disposition home or self-care (01) ==
LOC: ED 06:28
PROVIDERS: Emergency Medicine
DX: J44.1 Chronic obstructive pulmonary disease with (acute) exacerbation (principal); I10 Essential (primary) hypertension; T48.6X6A Underdosing of antiasthmatics, initial encounter; Z91.128 Patient's intentional underdosing of medication regimen for other reason

== ENCOUNTER 2024-11-07 21:06 | Emergency (ER) | payer MEDICARE ==
[~2024-11-07] VITALS: Ht 149.9 cm; Wt 54.0 kg
[2024-11-07 21:17] VITALS: BP 153/81
[2024-11-07] MEDS ORDERED: methylPREDNISolone SODIUM SUCC 125 MG/2 ML SDV IV ONE (21:25)
[2024-11-07] MEDS ORDERED: IPRATROPIUM-Albuterol 0.5MG-2.5MG/3 ML NEB ONE (21:25)
[2024-11-07] MEDS ORDERED: ALBUTEROL SULFATE 2.5 MG VIAL IN ONE (21:25)
[2024-11-07 21:48] LABS: BASO% 0.4 % (0-3); HEMATOCRIT 50.7 % (37.0-47.0); HEMOGLOBIN 15.7 g/dl (12.0-16.0); IMMATURE GRANULOCYTES 0.1 % (0.0-5.0); MEAN CORPUSCULAR HGB 29.7 pG CALC (26.0-32.0); NEUT# 6.48 thou/uL (2.00-7.15); NEUT% 72.5 % (42-76); RED BLOOD COUNT 5.28 mill/uL (4.20-5.60); RED CELL DISTRI WIDTH 13.9 % (11.5-15.5)
[2024-11-07] MEDS ORDERED: MEMANTINE HYDROC5 MG (21:55)
[2024-11-07] MEDS ORDERED: DONEPEZIL HYDROC5 MG (21:55)
[2024-11-07 21:58] LABS: CREATININE 0.6 mg/dL (0.5-1.0); POTASSIUM 4.4 mmol/l (3.5-5.1); TOTAL PROTEIN 7.2 g/dL (6.3-8.2)
[2024-11-07 22:00] VITALS: BP 126/76
[2024-11-07 22:09] LABS: D-DIMER 0.51 mg/L (0.19-0.60); INTERNATIONAL NORMALIZED RATIO 1.1 RATIO (0.7-1.3)
[2024-11-07 22:12] LABS: BILIRUBIN, TOTAL 0.6 mg/dL (0.02-1.3)
[2024-11-07 22:14] LABS: PROTHROMBIN TIME 11.6 SECONDS (9.0-12.5)
[2024-11-07] MEDS ORDERED: ASPIRIN 81 MG/TAB PO ONE (22:15)
[2024-11-07] MEDS ORDERED: Heparin SODIUM (Porcine) 500 ML IV ONE (22:45)
[2024-11-07] MEDS ORDERED: Heparin SODIUM (Porcine) 5,000 UNITS/ML SDV IV ONE (22:45)
[2024-11-07 23:00] VITALS: BP 142/88
[2024-11-07 23:12] LABS: URINE BLOOD DIPSTICK Negative (NEGATIVE); URINE GLUCOSE - DIPSTICK Negative (NEGATIVE); URINE KETONE Negative (NEGATIVE); URINE NITRITE - DIPSTICK Negative (Negative); URINE PROTEIN - DIPSTICK >=300 mg/dL (NEG-TRACE); URINE SPECIFIC GRAVITY >=1.030; URINE UROBILINOGEN - DIPSTICK 0.2 E.U./dL (0.2)
[2024-11-07 23:15] LABS: URINE COLOR Yellow; URINE LEUK ESTERASE Negative (NEGATIVE)
[2024-11-07 23:18] LABS: URINE EPITHELIAL CELLS MANY EPI/hpf (0-FEW); URINE FINE GRAN CAST FEW lpf; URINE HYALINE CAST FEW lpf (NONE-RARE); URINE MUCUS MANY hpf (NONE-FEW)
[2024-11-07 23:19] LABS: URINE BACTERIA MODERATE hpf
[2024-11-07] MEDS ORDERED: diazePAM 10 MG/2 ML VIAL IV ONE (23:55)
[2024-11-08] VITALS: BP 142/86
== END 2024-11-08 00:07 ==
LOC: ED 21:06
PROVIDERS: Family Medicine
PROC: 5A09357 Assistance with Respiratory Ventilation, Less than 24 Consecutive Hours, Continuous Positive Airway Pressure (ICD-10-PCS; principal; 2024-11-07)
DX: J44.1 Chronic obstructive pulmonary disease with (acute) exacerbation (principal); J96.00 Acute respiratory failure, unspecified whether with hypoxia or hypercapnia; R79.89 Other specified abnormal findings of blood chemistry; I10 Essential (primary) hypertension; F17.210 Nicotine dependence, cigarettes, uncomplicated; Z99.81 Dependence on supplemental oxygen
CPT/HCPCS: J1644; J3360

== ENCOUNTER 2024-12-23 14:34 | Emergency (ER) | payer MEDICARE, MEDICAID ==
[~2024-12-23] VITALS: Ht 152.4 cm; Wt 56.5 kg
[2024-12-23] VITALS (77 sets, daily range): BP systolic 80–189; BP diastolic 40–106
[~2024-12-23 14:34] MED LIST changes: +DONEPEZIL HYDROC5 MG; +MEMANTINE HYDROC5 MG
[2024-12-23] MEDS ORDERED: ROCURONIUM BROMIDE 10 MG/ML 5 ML VIAL IV ONE (14:40)
[2024-12-23] MEDS ORDERED: AZITHROMYCIN 500 MG in SODIUM CHLORIDE 0.9% 500 ML IV ONE (14:40)
[2024-12-23] MEDS ORDERED: KETAMINE HCL 50 MG/ML 10 ML VIAL IV ONE (14:40)
[2024-12-23] MEDS ORDERED: cefTRIAXone SODIUM 2 GM in SODIUM CHLORIDE 0.9% 100 ML IV ONE (14:40)
[2024-12-23] MEDS ORDERED: SODIUM CHLORIDE 0.9% 1,000 ML IV ONE (14:50)
[2024-12-23] MEDS ORDERED: PIPERACILLIN Sodium-Tazobactam 3.375 GM in SODIUM CHLORIDE 0.9% 100 ML IV ONE (14:50)
[2024-12-23] MEDS ORDERED: VANCOMYCIN HCL 1 GM in SODIUM CHLORIDE 0.9% 500 ML IV ONE (14:50)
[2024-12-23] MEDS ORDERED: PROPOFOL 100 ML IV ONE ×2 (15:15→18:20)
[2024-12-23] MEDS ORDERED: IPRATROPIUM-Albuterol 0.5MG-2.5MG/3 ML NEB ONE ×2 (15:40)
[2024-12-23] MEDS ORDERED: methylPREDNISolone SODIUM SUCC 125 MG/2 ML SDV IV ONE (15:40)
[2024-12-23 15:45] LABS: BASO% 0.4 % (0-3); EOS% 0.9 % (0-8); HEMATOCRIT 47.8 % (37.0-47.0); HEMOGLOBIN 14.7 g/dl (12.0-16.0); IMMATURE GRANULOCYTES 0.2 % (0.0-5.0); MEAN CELL VOLUME 94.7 fL CALC (80.0-100.0); MEAN CORPUSCULAR HGB 29.1 pG CALC (26.0-32.0); MEAN CORPUSCULAR HGB CONC 30.8 g/dL CAL (32.0-36.0); MONO% 8.8 % (2-13); NEUT# 3.2 thou/uL (2.00-7.15); NEUT% 58.7 % (42-76); RED BLOOD COUNT 5.05 mill/uL (4.20-5.60); RED CELL DISTRI WIDTH 14.1 % (11.5-15.5)
[2024-12-23 15:56] LABS: ALBUMIN 3.8 g/dL (3.2-5.0); BILIRUBIN, TOTAL 0.5 mg/dL (0.02-1.3); CREATININE 0.6 mg/dL (0.5-1.0); TOTAL PROTEIN 6.6 g/dL (6.3-8.2)
[2024-12-23] MEDS ORDERED: ASPIRIN 300 MG/SUP PR ONE (16:15)
[2024-12-23] MEDS ORDERED: SODIUM CHLORIDE 0.9% 250 ML IV PRN (16:20)
[2024-12-23] MEDS ORDERED: NOREPINEPHRINE BITARTRATE 4 MG in DEXTROSE 5% 250 ML IV ONE (16:20)
[2024-12-23 16:23] LABS: URINE BLOOD DIPSTICK Trace-intact (NEGATIVE); URINE COLOR Yellow; URINE GLUCOSE - DIPSTICK Negative (NEGATIVE); URINE KETONE Negative (NEGATIVE); URINE LEUK ESTERASE Negative (NEGATIVE); URINE NITRITE - DIPSTICK Negative (Negative); URINE PH 5.5 (4.5-8.0); URINE PROTEIN - DIPSTICK >=300 mg/dL (NEG-TRACE); URINE SPECIFIC GRAVITY >=1.030; URINE UROBILINOGEN - DIPSTICK 0.2 E.U./dL (0.2)
[2024-12-23 16:29] LABS: URINE RBC 0-2 RBC/hpf (0-5); URINE WBC 0-2 WBC/hpf (0-5)
[2024-12-23 16:30] LABS: URINE MUCUS MODERATE hpf (NONE-FEW); URINE SQUAMOUS EPITHELIAL CELL FEW EPI/hpf (0-FEW); URINE TRANSITIONAL EPI. CELLS FEW hpf
[2024-12-23 16:31] LABS: URINE HYALINE CAST MODERATE lpf (NONE-RARE)
[2024-12-23 16:33] LABS: URINE WAXY CAST FEW lpf
[2024-12-23] MEDS ORDERED: ENOXAPARIN SODIUM 100 MG/ML SYR SC ONE (16:40)
[2024-12-23] MEDS ORDERED: LORazepam 40 MG in SODIUM CHLORIDE 180 ML IV ONE (16:55)
--- NOTE | 2024-12-24 10:48 | NUR ---
Blood culture ID of Staph epidermidis and preliminary blood culture results of 1 of 4 bottles growing gram positive cocci called and faxed to nurse Bustos at [facility].
== END 2024-12-23 19:27 | disposition short-term general hospital (02) ==
LOC: ED 14:34
PROVIDERS: Family Medicine
PROC: 05HM33Z Insertion of Infusion Device into Right Internal Jugular Vein, Percutaneous Approach (ICD-10-PCS; principal; 2024-12-23)
PROC: 0BH17EZ Insertion of Endotracheal Airway into Trachea, Via Natural or Artificial Opening (ICD-10-PCS; 2024-12-23)
PROC: 5A1935Z Respiratory Ventilation, Less than 24 Consecutive Hours (ICD-10-PCS; 2024-12-23)
PROC: 0T9B70Z Drainage of Bladder with Drainage Device, Via Natural or Artificial Opening (ICD-10-PCS; 2024-12-23)
DX: I21.4 Non-ST elevation (NSTEMI) myocardial infarction (principal); J96.00 Acute respiratory failure, unspecified whether with hypoxia or hypercapnia; J44.1 Chronic obstructive pulmonary disease with (acute) exacerbation; I11.0 Hypertensive heart disease with heart failure; I50.9 Heart failure, unspecified; F03.90 Unspecified dementia, unspecified severity, without behavioral disturbance, psychotic disturbance, mood disturbance, and anxiety; I25.2 Old myocardial infarction; Z87.891 Personal history of nicotine dependence; Z99.81 Dependence on supplemental oxygen; Z20.822 Contact with and (suspected) exposure to COVID-19
CPT/HCPCS: J0456; J0696; J1650; J2060; J2543; J2704; J3370